=== PATIENT | female | born 1950 | race Caucasian/White ===

== ENCOUNTER 2022-09-30 11:32 | Outpatient (CLI) | payer OTHER | END 2022-09-30 11:36 | disposition home or self-care (01) | LOC: SONOGRAMA 11:32 | PROVIDERS: ATTEND Pathology Anatomic Pathology & Clinical Pathology | DX: C73 Malignant neoplasm of thyroid gland (principal); D34 Benign neoplasm of thyroid gland; E04.9 Nontoxic goiter, unspecified; E07.9 Disorder of thyroid, unspecified; E04.2 Nontoxic multinodular goiter ==